=== PATIENT | male | born 1995 | race Native Hawaiian/Other Pacific Islander ===

== ENCOUNTER 2021-05-03 21:13 | Emergency (ER) | payer OTHER ==
[~2021-05-03] VITALS: Ht 190.5 cm; Wt 72.6 kg
[~2021-05-03 21:13] MED LIST: DIPHENOXYLATE/A1 TA1 PO; HYDROCODONE-AP1 EAC6 PO; IBUPROFEN 800800 M1 PO; NOHOMEMEDICATIONS; TYLENOL325 MG PO; ZOFRAN ODT4 MG PO
[2021-05-03] MEDS ORDERED: ALEVE220 M1 PO (21:49)
[2021-05-03 23:35] LABS: ABSOLUTE NEUTROPHILS 11.1 thou/uL (1.4-8.2); BASOPHILS 0.2 % (0.0-2.0); HEMATOCRIT 41.7 % (42.0-52.0); HEMOGLOBIN 14.2 gm/dL (14.0-18.0); MCH 30.4 pg (26.0-34.0); MCHC 34.1 g/dL (28.0-37.0); MCV 89.2 fL (80.0-100.0); MONOCYTES 8.7 % (1.0-8.0); PLATELET COUNT 218 thou/uL (150-400); POLYS 87.1 % (36.0-66.0); RBC 4.68 mil/uL (4.50-6.00); RDW 13.3 % (10.5-14.5); WBC 12.7 thou/uL (4.0-11.0)
[2021-05-03 23:40] LABS: CALCIUM 8.8 mg/dL (8.5-10.1); POTASSIUM 3.4 mmol/L (3.5-5.1)
[2021-05-03 23:46] LABS: ALBUMIN 3.9 g/dL (3.4-5.0); TOTAL BILIRUBIN 0.7 mg/dL (0.2-1.0); TOTAL PROTEIN 7.8 g/dL (6.4-8.2)
[2021-05-04] MEDS ORDERED: AZITHROMYCIN 2250 MG PO (00:01)
[2021-05-04 00:41] VITALS: BP 114/58
== END 2021-05-04 00:42 | disposition home or self-care (01) ==
LOC: ER 21:13
PROVIDERS: Emergency Medicine
DX: B34.9 Viral infection, unspecified (principal); Z79.899 Other long term (current) drug therapy; Z20.822 Contact with and (suspected) exposure to COVID-19